=== PATIENT | male | born 1960 | race African-American/Black ===

== ENCOUNTER 2016-11-07 22:20 | Emergency (ER) | payer MEDICARE, OTHER ==
[2016-11-07] MEDS ORDERED: SODIUM CHLORIDE 0.9% 1,000 ML IV ONE (23:06)
[2016-11-07] MEDS ORDERED: KETOROLAC 30 MG/ML 1 ML VIAL IVP STA (23:06)
[2016-11-07] MEDS ORDERED: methylPREDNISolone SOD SUCCI 125 MG/2 ML VIAL IV STA (23:06)
--- NOTE | 2016-11-07 23:36 | XR ---
EXAM: XR Chest, 2 Views. CLINICAL HISTORY: Reason: Trauma TECHNIQUE: Frontal and lateral views of the chest. COMPARISON: Chest x-ray dated 01/26/14 FINDINGS: Lungs: Unremarkable. No consolidation. Pleural space: Unremarkable. No pneumothorax. Heart: Unremarkable. No cardiomegaly. Mediastinum: Unremarkable. Bones/joints: Old right rib fractures. No acute fracture identified. IMPRESSION: Old right rib fractures. No acute cardiopulmonary abnormality.
--- NOTE | 2016-11-08 00:04 | CT ---
EXAM: CT Head Without Intravenous Contrast. CLINICAL HISTORY: Reason: Pain TECHNIQUE: Axial computed tomography images of the head/brain without intravenous contrast. CTDI is 57.4 mGy and DLP is 1150.5 mGy-cm This CT exam was performed using one or more of the following dose reduction techniques: automated exposure control, adjustment of the mA and/or kV according to patient size, and/or use of iterative reconstruction technique. Coronal and sagittal reformatted images were created and reviewed. COMPARISON: CT 01/24/14 FINDINGS: Brain: Moderate chronic small vessel ischemic change. Right middle cranial fossa CSF space which may represent an arachnoid cyst. Right parietal focus of calcification which may represent a small vascular malformation. Cranial region 1 cm cyst. These findings are unchanged. No hemorrhage. Ventricles: Unremarkable. No ventriculomegaly. Bones/joints: Unremarkable. No acute fracture. Soft tissues: Unremarkable. Sinuses: Right maxilla sinus mucous retention cyst. Mild interval thickening of the left left maxilla sinus and ethmoid air cells. Right sphenoid sinus mucous retention cysts. Mastoid air cells: Unremarkable as visualized. No mastoid effusion. IMPRESSION: Moderate chronic small vessel ischemic change. Right middle cranial fossa CSF space which may represent an arachnoid cyst. Right parietal focus of calcification which may represent a small vascular malformation. Cranial region 1 cm cyst. These findings are unchanged. EXAM: CT Cervical Spine Without Intravenous Contrast. CLINICAL HISTORY: Reason: Pain TECHNIQUE: Axial computed tomography images of the cervical spine without intravenous contrast. CTDI is 18.4 mGy and DLP is 441.7 mGy-cm Repeat axial images were performed with a radiation dose of CTDI is 13. 5 mGy and DLP is 178.1 mGy-cm This CT exam was performed using one or more of the following dose reduction techniques: automated exposure control, adjustment of the mA and/or kV according to patient size, and/or use of iterative reconstruction technique. Coronal and sagittal reformatted images were created and reviewed. COMPARISON: CT 01/24/14 FINDINGS: Vertebrae: Unremarkable. No acute fracture. Discs/spinal canal/neural foramina: Degenerative disc disease seen at C3/C4 and C4/C5. Neuroforaminal stenosis is seen at C3/C4 bilaterally and at C4/C5 and C5/C6 on the left. Prominent disc osteophyte complex seen at C3/C4. Facet disease is seen at C3/C4, C4/C5, C5/C6 and C6/C7. Soft tissues: Unremarkable. Lung apices: Unremarkable as visualized. IMPRESSION: No acute findings. Cervical spondylosis as described with the most prominent disease at C3/C4 with a disc osteophyte complex and neuroforaminal stenosis.
[2016-11-08 00:14] LABS: Basophils % (A) 0 %; CH 28.2; CHCM 31.3; Eosinophils # (A) 0.2 k/uL (0-0.7); Eosinophils % (A) 2 %; HCT 41.9 % (39.0-53.0); HGB 13.2 gm/dL (13.0-17.5); Luc % (Auto) 1; Lymphocytes # (A) 0.4 k/uL (1.0-4.8); Lymphocytes % (A) 6 %; MCH 28.5 pg (25.0-35.0); MCHC 31.4 g/dL (31.0-37.0); MCV 90.6 fL (80.0-100.0); Mean Platelet Volume 6.2; Monocytes # (A) 0.5 k/uL (0-1.0); Monocytes % (A) 7 %; Neutrophils # (A) 5.7 k/uL (1.3-7.7); Neutrophils % (A) 84 %; RBC 4.62 m/uL (4.30-5.90); WBC 6.8 k/uL (3.8-10.6); WBC (Perox) 6.97
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
[2016-11-08 00:23] LABS: Anion Gap 12 mmol/L; Blood Urea Nitrogen 9 mg/dL (9-20); Calcium 9.1 mg/dL (8.4-10.2); Carbon Dioxide 22 mmol/L (22-30); Chloride 114 mmol/L (98-107); Glucose 75 mg/dL (74-99); Non-African American GFR(MDRD) >60 (>60 ml/min/1.73 sqM); Sodium 148 mmol/L (137-145)
[2016-11-08 00:28] VITALS: BP 178/72; PULSE 67; RESP 18; TEMP 97.4
== END 2016-11-08 01:15 | disposition home or self-care (01) ==
LOC: EC 22:20
DX: S20.212A Contusion of left front wall of thorax, initial encounter (principal); S09.93XA Unspecified injury of face, initial encounter; G40.909 Epilepsy, unspecified, not intractable, without status epilepticus; Z87.891 Personal history of nicotine dependence; Z79.899 Other long term (current) drug therapy; Z88.2 Allergy status to sulfonamides; Z88.8 Allergy status to other drugs, medicaments and biological substances; Y04.0XXA Assault by unarmed brawl or fight, initial encounter; Y92.89 Other specified places as the place of occurrence of the external cause
CPT/HCPCS: 36415; 93005; 80048; 84484; 85025; 71020; 72125; 70450; 99285; 96374; 96361; J2930

== ENCOUNTER 2017-01-21 21:10 | Emergency (ER) | payer MEDICARE, OTHER ==
[2017-01-21 21:18] VITALS: RESP 16; TEMP 98.3
--- NOTE | 2017-01-21 21:36 | ED ---
General Adult HPI - General Chief complaint: Extremity Injury, Upper Stated complaint: Shoulder Pain Time Seen by Provider: 01/21/17 21:16 Source: patient, RN notes reviewed Mode of arrival: EMS Limitations: no limitations - History of Present Illness Initial comments: Patient is a pleasant 56-year-old male presenting to the emergency department following a fall. Patient states he was holding onto the leash of his Rottweiler that weighs 90 pounds. The dog did run and pulled him forward. Patient landed on left shoulder and did strike his head. Patient was dazed for a couple of seconds however did not lose consciousness. Patient does have some neck pain as well. Most of the discomfort is left clavicle and left upper shoulder. No chest or abdominal pain. No back pain. Patient has chronic left- sided weakness from multiple sclerosis as well as previous stroke. Room does smell of smoke and patient admits to smoking prior to arrival. - Related Data Home Medications Medication Instructions Recorded Confirmed Citalopram Hydrobromide 40 mg PO DAILY 12/30/13 11/07/16 [Citalopram HBr] Gabapentin [Neurontin] 300 mg PO BID 12/30/13 11/07/16 Ranitidine HCl 150 mg PO BID 01/24/14 11/07/16 Zolpidem Tartrate [Ambien Cr] 10 mg PO HS PRN 01/24/14 11/07/16 Previous Rx's Medication Instructions Recorded Cyclobenzaprine [Flexeril] 10 mg PO TID #20 tab 12/30/13 Hydrocodone/Acetaminophen 10 mg PO DIRECTED PRN #20 tablet 01/29/14 [Hydrocodone/Acetaminophen 10-325] Ibuprofen [Motrin] 400 mg PO Q8HR PRN #20 tab 01/29/14 LORazepam [Ativan] 1 mg PO TID #20 tab 01/29/14 Phenytoin Sodium Extended 300 mg PO DAILY #90 capsule 01/29/14 [Dilantin] Ibuprofen [Motrin] 800 mg PO Q8HR PRN #20 tab 11/08/16 Allergies Allergy/AdvReac Type Severity Reaction Status Date / Time epinephrine Allergy Unknown Verified 01/21/17 21:18 [From Primatene Mist] epinephrine bitartrate Allergy Unknown Verified 01/21/17 21:18 [From Primatene Mist] Sulfa (Sulfonamide Allergy Unknown Verified 01/21/17 21:18 Antibiotics) Review of Systems ROS Statement: Those systems with pertinent positive or pertinent negative responses have been documented in the HPI. ROS Other: All systems not noted in ROS Statement are negative. Constitutional: Denies: fever Eyes: Denies: eye pain ENT: Denies: ear pain Respiratory: Denies: cough Cardiovascular: Denies: chest pain Endocrine: Denies: fatigue Gastrointestinal: Denies: abdominal pain Genitourinary: Denies: dysuria Musculoskeletal: Denies: back pain Skin: Denies: rash Neurological: Reports: weakness (Chronic and unchanged) Past Medical History Past Medical History: Seizure Disorder Additional Past Medical History / Comment(s): multiple sclerosis, neuropathy, foot drop Left foot, chronic low back pain. History of Any Multi-Drug Resistant Organisms: None Reported Past Surgical History: Orthopedic Surgery Additional Past Surgical History / Comment(s): right thigh surgery 20 years ago ; wears brace on right knee when it hurts. Additional Past Anesthesia/Blood Transfusion Reaction / Comment(s): no h/x of blood transfusions aor anesthesia Past Psychological History: No Psychological Hx Reported Smoking Status: Former smoker Past Alcohol Use History: None Reported Past Drug Use History: Marijuana - Past Family History Sister(s) Family Medical History: Diabetes Mellitus Mother Family Medical History: Cancer General Exam Limitations: no limitations General appearance: alert, in no apparent distress Head exam: Present: atraumatic, normocephalic Eye exam: Present: normal appearance, PERRL ENT exam: Present: normal oropharynx Neck exam: Present: tenderness (Mild tenderness upper cervical spine) Respiratory exam: Present: normal lung sounds bilaterally Cardiovascular Exam: Present: regular rate, normal rhythm GI/Abdominal exam: Present: soft. Absent: tenderness Extremities exam: Present: tenderness (Left mid clavicle and left ac region.), other (Decreased range of motion left shoulder secondary to pain.) Neurological exam: Present: alert, other (Patient does have left leg weakness which he states is chronic and unchanged. 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 - Radiology Data Radiology results: report reviewed (Computed tomography scan of the brain shows no acute abnormality. Probable arachnoid cyst. Old infarct. Computed tomography scan of the cervical spine shows no acute fracture.), image reviewed (X-ray left clavicle shows no acute injury. X-ray of the left shoulder shows old left acromioclavicular injury) Disposition Clinical Impression: Injury of left shoulder Disposition: HOME SELF-CARE Condition: Stable Instructions: Shoulder Sprain (ED), Head Injury (ED) Additional Instructions: Please follow-up with primary care physician in the next day or 2 for recheck. Ice to affected area. Please also follow-up with orthopedics. Return for change in mental status, confusion or weakness, worsening symptoms or other concerns. Referrals: Nonstaff,Physician [Primary Care Provider] - 1-2 days Angela Lamb MD [STAFF PHYSICIAN] - 1-2 days Aubree Terry MD [REFERRING] - 1-2 days Ellis Funk MD [STAFF PHYSICIAN] - 1-2 days Time of Disposition: 22:15
--- NOTE | 2017-01-21 22:04 | CT ---
EXAMINATION TYPE: CT brain [address] DATE OF EXAM: 01/21/2017 COMPARISON: 11/07/2016 HISTORY: Fall from porch today landing on left shoulder. Left sided head injury with dizziness. CT DLP: 1633.00 mGycm Automated exposure control for dose reduction was used. TECHNIQUE: CT scan of the head and cervical spine are performed without contrast. FINDINGS: Ventricles are within normal limits. There is no mass effect nor midline shift. There is no sign of intracranial hemorrhage. There is a 3 x 2 cm area of hypodensity in the left parietal lobe consistent with old cortical infarct. There is increased CSF in the right middle cranial fossa this could relate to an arachnoid cyst. The cervical vertebra have normal alignment. There are mild spondylotic changes at C3-4 C4-5. There i s mild hypertrophic facet arthropathy. There is no evidence of a fracture. IMPRESSION: There is 2 x 3 cm area of fluid in the right middle cranial fossa that could relate to arachnoid cyst . 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 No acute intracranial abnormality. No significant ch sandra compared to last exam. Spondylotic changes in the cervical spine. No fracture seen. No change.
--- NOTE | 2017-01-21 22:07 | XR ---
EXAMINATION TYPE: XR clavicle LT DATE OF EXAM: 01/21/2017 COMPARISON: NONE HISTORY: Pain 2 views TECHNIQUE: 2 views FINDINGS: I see no fracture nor dislocation. There is mild spurring at the AC joint. IMPRESSION: No acute abnormality of the left clavicle.
--- NOTE | 2017-01-21 22:08 | XR ---
EXAMINATION TYPE: XR shoulder complete LT DATE OF EXAM: 01/21/2017 CLINICAL HISTORY: Pain TECHNIQUE: Three views of the left shoulder are obtained. COMPARISON: None. FINDINGS: I see no fracture nor dislocation. There is slight widening of the AC joint space consisten t with old ligament injury. There is mild calcification.. IMPRESSION: Evidence of old AC joint ligament injury. No acute bony abnormality.
[2017-01-21] MEDS ORDERED: ACETAMINOPHEN TAB 325 MG TAB PO STA (22:23)
[2017-01-21 22:34] VITALS: BP 121/80; PULSE 75
== END 2017-01-21 22:34 | disposition home or self-care (01) ==
LOC: EC 21:10
DX: S49.92XA Unspecified injury of left shoulder and upper arm, initial encounter (principal); Z87.891 Personal history of nicotine dependence; Z88.2 Allergy status to sulfonamides; Z88.8 Allergy status to other drugs, medicaments and biological substances; Z79.899 Other long term (current) drug therapy; W18.09XA Striking against other object with subsequent fall, initial encounter
CPT/HCPCS: 70450; 72125; 99284